=== PATIENT | female | born 1945 | race Caucasian/White ===

== ENCOUNTER 2022-09-13 09:29 | Outpatient (CLI) | payer MEDICARE, SELFPAY ==
--- NOTE | ~2022-09-13 | XR_ITS ---
EXAMINATION: XR lumbar spine min 4V DATE: 09/13/2022 10:30 INDICATION: Low back pain. TECHNIQUE: 4 views of lumbar spine standing including flexion and extension views were obtained. COMPARISON: None. FINDINGS: There is 10 degrees levoscoliosis of thoracolumbar spine. There is no abnormal motion with flexion and extension. Vertebral body heights are normal. There is mildly decreased disc height at L4 -L5 and L5-S1. There are endplate osteophytes at all levels. There is multilevel facet joint osteoart hritis, moderate to severe in lower lumbar spine. IMPRESSION: 1. Mild lumbar spondylosis. 2. Thoracolumbar levoscoliosis. Reviewed, dictated and finalized at location A.
--- NOTE | 2022-09-13 11:00 | NEURO_ITS ---
Impression: Patient reports a history of lower back pain with radiation to both legs. # Normal nerve conduction study. # Chronic neurogenic changes noted in right gastroc, fibularis longus, flexor digitorum longus and extensor digitorum brevis. This finding can be seen in the setting of right lower lumbosacral radiculopathy (L5-S2). Nerve Conduction Studies Anti Sensory Summary Table Stim Site NR Peak (ms) P-T Amp (?V) Site1 Site2 Delta-P (ms) Dist (cm) Newton (m/s) Left Sup Fibular Anti Sensory (Ant Lat Mall) 14 cm 3.7 8.4 14 cm Ant Lat Mall 3.7 16.0 43 Right Sup Fibular Anti Sensory (Ant Lat Mall) 14 cm 3.8 9.7 14 cm Ant Lat Mall 3.8 16.0 42 Left Sural Anti Sensory (Lat Mall) Calf 3.9 13.0 Calf Lat Mall 3.9 16.0 41 Right Sural Anti Sensory (Lat Mall) Calf 3.8 12.3 Calf Lat Mall 3.8 16.0 42 Motor Summary Table Stim Site NR Onset (ms) O-P Amp (mV) Site1 Site2 Delta-0 (ms) Dist (cm) Newton (m/s) Left Peroneal Motor (Vastus Med) Ankle 4.2 3.1 Popit Ankle 9.4 41.0 44 Popit 13.6 2.3 B Fib Ankle 6.6 30.0 45 B Fib 10.8 2.6 Right Peroneal Motor (Vastus Med) Ankle 3.5 4.0 Popit Ankle 9.5 42.0 44 Popit 13.0 2.9 B Fib Ankle 6.8 30.0 44 B Fib 10.3 3.2 Left Tibial Motor (Abd Guzman Brev) Ankle 4.0 6.6 Knee Ankle 8.7 40.0 46 Knee 12.7 4.8 Right Tibial Motor (Abd Guzman Brev) Ankle 3.5 12.6 Knee Ankle 9.0 40.0 44 Knee 12.5 9.0 F Wave Studies NR F-Lat (ms) L-R F-Lat (ms) Left Peroneal (Mrkrs) (EDB) 51.14 0.16 Right Peroneal (Mrkrs) (EDB) 50.98 0.16 Left Tibial (Mrkrs) Run #2 (Abd Hallucis) 51.72 0.65 Right Tibial (Mrkrs) (Abd Hallucis) 51.07 0.65 EMG Side Muscle Nerve Root Ins Act Fibs Amp Dur Recrt Comment Right AntTibialis Dp Br Fibular L4-5 Nml Nml Nml Nml Nml Right Gastroc Tibial S1-2 Nml Nml Nml Nml Reduced Right Fibularis Long Sup Br Fibular L5-S1 Nml Nml Nml Nml Reduced Right Flex Dig Long Tibial L5-S2 Nml Nml Nml Nml Reduced Right Ext Dig Brev Dp Br Fibular L5, S1 Nml Nml Nml Nml Reduced Left AntTibialis Dp Br Fibular L4-5 Nml Nml Nml Nml Nml Left Gastroc Tibial S1-2 Nml Nml Nml Nml Nml Left Fibularis Long Sup Br Fibular L5-S1 Nml Nml Nml Nml Nml Left Flex Dig Long Tibial L5-S2 Nml Nml Nml Nml Nml Left Ext Dig Brev Dp Br Fibular L5, S1 Nml Nml Nml Nml Nml MTDD
== END 2022-09-13 09:30 | disposition home or self-care (01) ==
LOC: ANHLAB 09:31 → ANHNEURO 09:32
PROVIDERS: PCP Family Medicine; Visit Provider Neurological Surgery
DX: M54.9 Dorsalgia, unspecified (principal); R20.2 Paresthesia of skin; M43.06 Spondylolysis, lumbar region; M41.85 Other forms of scoliosis, thoracolumbar region
CPT/HCPCS: 72110; 95886; 95910

== ENCOUNTER 2023-08-15 12:26 | Outpatient (CLI) | payer MEDICARE, SELFPAY ==
--- NOTE | 2023-08-15 12:33 | ECG_ITS ---
Measurements Intervals [place] Rate: 62 P: 74 SC: 178 QRS: -21 QRSD: 142 T: 83 QT: 461 QTc: 471 Interpretive Statements SINUS RHYTHM LEFT BUNDLE BRANCH BLOCK ABNORMAL ECG NO PREVIOUS ECG AVAILABLE FOR COMPARISON Electronically Signed On 08-15-2023 13:18:28 CDT by Jones Chung D.O.
[2023-08-15 13:00] LABS: Hematocrit 40.2 % (37.0-47.0); Hemoglobin 12.4 g/dL (12.0-15.0); Mean Corpuscular HGB Conc 30.8 g/dl (32-36); Mean Corpuscular Hemoglobin 27.4 pg (26-34); Mean Corpuscular Volume 88.9 fl (80-100); Platelet Count Result 321 k/mm3 (150-375); Red Blood Count 4.52 M/mm3 (4.2-5.4); Red Cell Distribution Width 13.7 % (11.5-14.5); White Blood Count 7.8 K/mm3 (4.5-10.0)
[2023-08-15 13:15] LABS: Anion Gap 5 mmol/L (8-16); Blood Urea Nitrogen 16 mg/dL (7-17); Calcium 8.9 mg/dL (8.4-10.2); Carbon Dioxide 34 mmol/L (22-30); Chloride 100 mmol/L (98-107); Estimated Glomerular Filt Rate > 60; Glucose 93 mg/dL (65-110); Potassium 3.7 mmol/L (3.4-5.0); Sodium 139 mmol/L (137-145)
[2023-08-15 13:32] LABS: Appearance Urine Clear (Clear); Bacteria Urine None Seen /hpf; Bilirubin Urine Negative (Negative); Blood Urine Negative (Negative); Color Urine Dark Yellow (Yellow); Glucose Urine UA Negative (Negative); Ketones Urine Trace mg/dL (Negative); Leukocyte Esterase Ur Trace LEU/UL (Negative); Nitrate Urine Negative (Negative); Non Pathogenic Casts 0-2; Protein Urine Negative (Negative); Specific Grav Ur 1.022 (1.001-1.035); Squamous Epithelial Cell Urine None Seen /hpf (Few); WBC Urine 0-5 /hpf (0-3); pH Urine 6.5 (5.0-9.0)
[2023-08-15 13:39] LABS: Add Urine Microscopic? YES
[2023-08-15 13:58] LABS: Prothrombin Time 13.9 Seconds (11.1-14.7)
[2023-08-15 13:59] LABS: Partial Thromboplastin Time 28.7 Seconds (22.3-36.8)
== END 2023-08-15 12:27 | disposition home or self-care (01) ==
LOC: ANHSURGERY 12:30
PROVIDERS: PCP Family Medicine; Visit Provider Neurological Surgery
DX: Z01.818 Encounter for other preprocedural examination (principal); I44.7 Left bundle-branch block, unspecified; R94.31 Abnormal electrocardiogram [ECG] [EKG]; M47.816 Spondylosis without myelopathy or radiculopathy, lumbar region; I10 Essential (primary) hypertension
CPT/HCPCS: 36415; 80048; 85027; 85610; 85730; 93005

== ENCOUNTER 2023-08-23 16:03 | Observation (INO) | payer MEDICARE, SELFPAY ==
--- NOTE | 2023-08-10 15:30 | PC.NURSE ---
Report to the Outpatient Waiting Room, entrance under the green pavilion located off [facility], at time __0900 on date __08/21/23 . Planned Procedure Time: ___1100 . Time changes happen often and if your time is changed the preop area will call you the afternoon before. - You and your visitor will be asked to self-screen and do not enter if you have any COVID symptoms. - A mask is optional within the hospital at this time. Patients may have clear liquids (water, carbonated beverages, clear teas, apple juice) until 3 hours prior to surgery( 8 AM ) with a maximum of 20 ounces. - No food from midnight until time of surgery Take the following medications with a SIP of water the morning of surgery: _AMLODIPINE,DIAZEPAM,DULOXETINE,GABAPENTIN,HYDROCODONE IF NEEDED,LEVOTHYROXINE,METOPROLOL DO NOT STOP ANY OF YOUR OTHER PRESCRIPTION MEDICATIONS PRIOR TO SURGERY ?EXCEPT THE FOLLOWING Medications to discontinue per physician __ALL VITAMINS AND SUPPLEMENTS 3 DAYS PRE OP.LAST DOSE08/17/23___ASPIRIN AND MELOXICAM PER DR ANDERSON PT STATES 7 DAYS PRE OP .PER DR ANDERSON 08/13/23 LAST DOSE Please no make-up, nail kenyan, hairspray, perfume, deodorant, or body powder the day of surgery. No jewelry (including any body piercings) or valuables the day of surgery, leave them at home. Please take a shower or bath the night before, or the morning of, surgery with an antibacterial soap. Wear comfortable, loose fitting clothing. Children are encouraged to wear pajamas. - Jewelry must be removed prior to entering the operating room. Rings and piercings that are not removed may be cut off. - The hospital will not accept responsibility for valuables. - Please leave all valuables, including medications, at home the day of surgery. If you are going home after surgery, a licensed river driver must drive you home. - NO public transportation without another adult if you receive anesthesia. - We recommend that an adult stay with you for 24 hours following discharge. - We also recommend that you do not drive, make important decision, drink alcoholic beverages, or take any drugs that were not prescribed by your health care provider for at least 24 hours after your discharge time. Follow any additional instructions given to you from your surgeon. If you or anyone in your household have experienced Covid symptoms in the past week, please notify your surgeon or the nurse liaison at the phone number below for possible testing. Telephone instructions given to _PATIENT and asked if any additional questions and then verbalized understanding. Patient advised to call surgeon office or pre surgery nurse liaison [phone] if any additional questions.
[2023-08-10 15:53] VITALS: BMI 32.1
[2023-08-21] VITALS (15 sets, daily range): BP systolic 118–163; BP diastolic 55–77; PULSE 75–92; RESP 14–20; TEMP 36.1–37; O2SAT 90–100
--- NOTE | 2023-08-21 10:36 | PM.IMHP ---
H&P: HPI History of Present Illness Date/Time: 08/21/23 10:36 Chief Complaint: Back and leg pain Narrative: Mitzy is here today for placement of a dorsal column stimulator after a successful trial. She continues to have the pain that she was having previously.? This is in her low back and bilateral lower extremities.? It occurs all the time regardless of whether she is sitting standing or walking or lying down.? She specifically denies claudicatory symptoms. She has pain in her low back that radiates posteriorly down into the bilateral lower extremities, greater on the right compared to the left. On the right, the pain extends down the lateral aspect of the leg to the ankle and on the left, the pain extends down the lateral aspect of the leg to the knee. The left lower extremity pain never goes all the way down to the ankle or below the knee and is less severe/bothersome than the right lower extremity radicular pain. The pain in her lower extremities is intermittent but has become more frequent and occurs on a daily basis at this point and is most notable for her when she is laying down which is causing her to have trouble sleeping at night. She notes diffuse/generalized weakness in the bilateral lower extremities but does not notice any specific muscle group weakness in either lower extremity or anywhere else. She has tried epidural steroid injections and medial branch blocks with a painter rough(s) in the past without permanent benefit. She is not sure if she has had a radiofrequency ablation but thinks that Dr. Kaplan may have tried this as the word ablation sounds familiar to her. She has also tried associate director career services and physical therapy within the last year but neither of these were helpful to her in any way. She does not report dermatomal numbness or any new bowel or bladder difficulty. She denies double vision or any other new constitutional problems at this time. She has undergone a dorsal column stimulator trial which was greater than 80% effective in eliminating the discomfort that she is having in her back and lower extremities.? ? She is here to discuss permanent implantation of that device as well as decompression at the L3-4 level. Review of Systems Review of Systems: Const Details: Const All systems reviewed & are unremarkable except as noted in HPI and below Denies chills, Denies fever(s), Denies frequent falls, Denies weight gain and Denies weight loss Eyes Denies change in vision, Denies diplopia and Denies loss of vision ENT Denies neck pain and Denies disequilibrium Card Denies chest pain and Denies dyspnea Resp Denies cough and Denies dyspnea GI Denies abdominal pain, Denies change in bowel habits, Denies fecal incontinence and Denies vomiting Denies hematuria, Denies urinary frequency, Denies difficulty voiding, Denies dysuria, Denies urinary incontinence, Denies urinary hesitancy and Denies urinary urgency Musc Reports as per HPI, Reports back pain, Reports muscle weakness, Denies neck pain, Reports radiating pain into limb and Reports stiffness Skin/ Breast Reports system reviewed and no additional complaints, except as documented Neuro Reports as per HPI, Denies burning sensations, Denies frequent falls, Denies focal weakness, Denies loss of vision, Reports radicular pain and Denies disequilibrium Psych Reports no additional complaints, Denies depression and Denies hopelessness Endo Reports no additional complaints and Denies polyuria Leo/ Lymph Reports no additional complaints Aller/ Immun Reports no additional complaints PMFSH Past Medical History Medical History Acute arthritis Allergies Thyroid disease Surgical History Surgical History No pertinent past surgical history Family History Family History Other Heart disease
--- NOTE | 2023-08-21 10:38 | WPDHPUPDATE1 ---
History and Physical Update Update Date/Time: 08/21/23 10:38 History and Physical has been reviewed, including an updated exam of the patient. There are NO changes in the patient's condition. Risks, benefits, and alternatives have been discussed and questions answered. Patient agrees to proceed with procedure.
--- NOTE | 2023-08-21 10:52 | WPDANESEPPF ---
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 Patient Data Age: 78 Gender: F Height: 1.63 m Weight: 84.85 kg Allergies Allergy/AdvReac Type Severity Reaction Status Date / Time codeine Allergy Mild Itching Verified 08/10/23 15:07 Home Medications Medication Instructions Recorded Confirmed Type Lactobacillus 1 cap PO DAILY 08/10/23 08/10/23 History acidophilus-Bifidobac.animalis 2.5 billion cell capsule (Daily Probiotic) alendronate 35 mg tablet 35 mg PO WEEKLY 08/10/23 08/10/23 History amlodipine 5 mg tablet 5 mg PO QAM 08/10/23 08/10/23 History aspirin 81 mg tablet,delayed 81 mg PO DAILY 08/10/23 08/10/23 History release (Adult Low Dose Aspirin) cyanocobalamin (vitamin B-12) 1,000 mcg PO DAILY 08/10/23 08/10/23 History 1,000 mcg tablet diazepam 2 mg tablet 2 mg PO BID 08/10/23 08/10/23 History docusate sodium 50 mg capsule 50 mg PO DAILY 08/10/23 08/10/23 History (Stool Softener) duloxetine 30 mg capsule,delayed 30 mg PO BID 08/10/23 08/10/23 History release fluticasone propionate 50 1 spray intranasal BID 08/10/23 08/10/23 History mcg/actuation nasal spray,suspension gabapentin 100 mg capsule 200 mg PO BID 08/10/23 08/10/23 History hydrochlorothiazide 12.5 mg tablet 12.5 mg PO DAILY 08/10/23 08/10/23 History hydrocodone 10 mg-acetaminophen 1 tablet PO BID 08/10/23 08/10/23 History 325 mg tablet levothyroxine 112 mcg tablet 112 mcg PO DAILY 08/10/23 08/10/23 History meloxicam 7.5 mg tablet 7.5 mg PO DAILY 08/10/23 08/10/23 History metoprolol succinate 25 mg 25 mg PO QAM 08/10/23 08/10/23 History tablet,extended release 24 hr montelukast 10 mg tablet 10 mg PO HS 08/10/23 08/10/23 History mitfnmex-gqw-phmu-FA-Ca carb-vit K 1 tablet PO DAILY 08/10/23 08/10/23 History 18 mg iron-400 mcg-500 mg tablet pantoprazole 40 mg tablet,delayed 40 mg PO DAILY 08/10/23 08/10/23 History release rosuvastatin 5 mg tablet 5 mg PO DAILY 08/10/23 08/10/23 History Patient hx anesthesia problems: none Family hx anesthesia problems: none Results Review: All pre-operative results and documents have been reviewed as part of the pre-operative evaluation. [facility], [facility] Past Medical History Medical History Acute arthritis Allergies Thyroid disease Surgical History Surgical History No pertinent past surgical history Family History Family History Other Heart disease Social History Social History Social History: Christiane is very confident filling out medical forms. In the last 12 months she has not received any assistance from an organization or program. Smoking packs per day: 1 Smoking cigarettes per day: 20.0 Years smoked: 40 Smoking pack-years: 40.00 Smoking status: Former smoker Tobacco type: cigarettes Smoking end date: 06/04/06 Alcohol intake: current Alcohol use details: 2 DRINKS PER MONTH Substance use: never Substance use type: does not use Lack of Transportation: No Lack of Food: Never True Current Housing: I Have Housing Concerned About Future Housing: No Difficulty Paying Gas/Electric Bills: No Difficulty Paying for Meds: No Currently Unemployed: No Education: High School Diploma/GED Difficulty w/ Childcare or Family Care: No Living arrangements: alone Spiritual care concerns: No Anes - Eval Final PreProcedure Day of Procedure 08/21/23 10:52 Patient weight: obese Heart: regular rate and rhythm Lungs: cl
[2023-08-21] MEDS: LACTATED RINGERS 1,000 ML 30 ML IV CONT ×2 (10:59→13:15)
[2023-08-21] MEDS: ceFAZolin 2 GM/D5W 50 ML 2 GM/50 ML BAG IVPB (11:02)
[2023-08-21] MEDS: LIDO 1%/EPINEPHRINE 1:100,000 20 ML VIAL INFILTRATE (11:47)
[2023-08-21] MEDS: VANCOMYCIN HCL 1,000 MG VIAL 500 MG TOPICAL (12:10)
--- NOTE | 2023-08-21 13:34 | W.PM.PROC2 ---
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 She was then turned into the prone position on a Edenilson frame. There of operation back was examined, marked for incision, prepped and draped in routine sterile fashion. Incision was marked over the L3 and L4 spinous processes in the midline, transversely in the left flank, and longitudinally in the thoracic spine based on the T10 pedicles. These areas were injected with 0.5% lidocaine with [id number] epinephrine. Intravenous antibiotics given prior to incision. Incisions were made in all locations using a 10 blade scalpel. At L3-4 subperiosteal dissection the muscle soft tissue away from spinous process and lamina on the left was performed with a subperiosteal elevator and Bovie cautery. A verifying x-rays obtained to verify the level of operation. Midas Ata drill was used to perform a hemilaminectomy medial facetectomy. Under microscopy the yellow ligament was lifted removed piecemeal using Kerrison punches. Lateral recess was cleared by did dissecting the plane with the dura and removing overgrown bone and ligament with Kerrison punches. This was done also contralaterally. These maneuvers were performed to attempt was made could be placed in the lateral epidural space to confirm lack of compression. Bleeding was stopped with bipolar Bovie cautery and Gelfoam thrombin powder. At the thoracic incision a subperiosteal dissection of the muscle soft tissue away from spinous process and lamina was performed with a subperiosteal elevator and Bovie cautery. A verifying x-rays obtained to verify the level of operation.Kerrison punches, curved curettes and Leksell rongeur were used to perform a laminectomy at T9-10 and T8-9 until a short wide area the dura was uncovered in both locations. A lead trial and a curved malleable retractor were used to cannulate the epidural space. The lead was then placed into the epidural space and to was confirmed the behind the T7 and T8 vertebral bodies in the midline. An anchor was attached 1 wires which was at the superior spinous process using a 3-0 Prolene suture. Tension relief loops were placed in both the wires which then buried to the flank incision where a pocket had been created using curved Rich scissors and toothed forceps 1 cm deep in the tissue and bleeding have been stopped with bipolar cautery. The wires were then placed into the generator site and secured the using the small screwdriver for that purpose. Impedance testing was carried out confirmed connectivity which was confirmed. The wounds were then all copiously irrigated with bacitracin irrigation all bleeding was stopped bipolar and Bovie cautery and Gelfoam thrombin powder. The wounds were then closed in layered fashion with 2-0 Vicryl interrupted sutures in the thoracic and lumbodorsal fascia and Janna's layer. 3-0 Vicryl buried interrupted sutures were placed in the dermis in all incisions were closed with a running 4-0 Monocryl subcuticular stitch and dressed with Dermabond. The patient was allowed to wake up in the operating room and was taken to the recovery room in stable condition. There were no immediate complications of this operation. All counts were reported correct at the end the case. Blood loss was 25 cc. The patient was neurologically at her baseline postoperatively. Implants Rios dorsal column stimulator lead and generator Estimated Blood Loss 25 IV Fluids 1,000 Complications None Condition Stable Disposition PACU [facility] Billing Surgery - Charge Forward: Surgery
--- NOTE | 2023-08-21 15:35 | ADMGEN ---
This patient, Christiane Hines, was admitted to Medical Room 252-. Patient/family oriented to hospital policies and general routines including ID bracelet, bed and alarms, visiting hours, pain management, procedures, bathroom and other care routines, personal items, smoking policy, room service/diet, and visiting hours. Information on how to activate the Rapid Response Team has been discussed. Patient/Family are encouraged to report perceived risks to care and to ask questions if they do not understand what they are told or what they should do.
[2023-08-21] MEDS: KCL 20 MEQ/D5/0.45% SOD CHL 1,000 ML 100 ML IV CONT (15:51)
[2023-08-21] MEDS: GABAPENTIN 100 MG CAPSULE 200 MG PO (17:33)
[2023-08-21] MEDS: diazePAM (*CRX) 2 MG TABLET PO (17:33)
[2023-08-21] MEDS: HYDROcodone/acetaminophen (*CRX) 10-325 MG TABLET 1 TAB PO (18:09)
[2023-08-21] MEDS: MONTELUKAST SODIUM 10 MG TABLET PO (20:23)
[2023-08-21] MEDS: HYDROcodone/acetaminophen (*CRX) 5-325 MG TABLET 1 TAB PO (20:23)
[2023-08-21] MEDS: FLUTICASONE PROPIONATE 0.05% NA SPR 16 GM BTL (*BKC) 1 SPRAY NASAL (20:23)
[2023-08-21] MEDS: DULoxetine HCL 30 MG CAPSULE.DR PO (20:23)
[2023-08-22] VITALS (8 sets, daily range): BP systolic 145–167; BP diastolic 63–80; PULSE 76–100; RESP 18–20; TEMP 36.6–38.4; O2SAT 94–98
[2023-08-22] MEDS: HYDROcodone/acetaminophen (*CRX) 10-325 MG TABLET 1 TAB PO ×2 (04:30→12:08)
[2023-08-22] MEDS: LEVOTHYROXINE SODIUM 112 MCG TABLET PO (05:18)
--- NOTE | 2023-08-22 07:28 | WPDANESPN ---
Anes - Prog Note Post-Op Date/Time: 08/22/23 07:28 Cardiovascular status: normal Respiratory status: normal Airway patency: baseline Mental status: baseline Post-Op hydration status: normal Vital Signs: Last Vital Signs Temp 36.7 C 08/22/23 04:18 Pulse 100 08/22/23 04:18 Resp 20 08/22/23 04:18 BP 163/74 H 08/22/23 04:18 Pulse Ox 97 08/22/23 04:18 O2 Del Method Room Air 08/21/23 20:20 O2 Flow Rate 6 08/21/23 14:00 Pain Score (VAS): 2 I/O: Intake & Output 08/21/23 08/21/23 08/22/23 15:59 23:59 07:59 Intake Total 1300 483.3 390 Output Total 600 600 Balance 700 483.3 -210 Post-procedural complaints: none Patient Feedback: Patient satisfied with anesthetic care.
[2023-08-22] MEDS: PANTOPRAZOLE 40 MG TABLET PO (08:32)
[2023-08-22] MEDS: CYANOCOBALAMIN 1,000 MCG TABLET 1000 MCG PO (08:32)
[2023-08-22] MEDS: diazePAM (*CRX) 2 MG TABLET PO ×2 (08:33→16:48)
[2023-08-22] MEDS: ROSUVASTATIN 5 MG TABLET PO (08:33)
[2023-08-22] MEDS: amLODIPine BESYLATE 5 MG TABLET PO (08:33)
[2023-08-22] MEDS: DULoxetine HCL 30 MG CAPSULE.DR PO ×2 (08:33→20:34)
[2023-08-22] MEDS: hydroCHLOROthiazide 12.5 MG CAPSULE PO (08:33)
[2023-08-22] MEDS: METOPROLOL SUCCINATE EXT REL 25 MG TABCR PO (08:33)
[2023-08-22] MEDS: THERAPEUTIC MULTIVITAMINS/MINERALS TAB (*BKC) 1 TABLET PO (08:33)
[2023-08-22] MEDS: FLUTICASONE PROPIONATE 0.05% NA SPR 16 GM BTL (*BKC) 1 SPRAY NASAL ×2 (08:34→20:34)
[2023-08-22] MEDS: DOCUSATE SODIUM LIQ 100 MG/10 ML UDC 50 MG PO (08:34)
[2023-08-22] MEDS: GABAPENTIN 100 MG CAPSULE 200 MG PO ×2 (08:34→16:48)
--- NOTE | 2023-08-22 17:03 | WPDNEUROSGPN ---
Progress Note: A&P Assessment and Plan (1) Status post lumbar spine operation: Code(s): Z98.890 - Other specified postprocedural states Status: Acute Plan POD#1 s/p left L3-4 hemilaminectomy and insertion of the DCS Patient is neurologically intact on exam. She reports not having good pain control mainly with back incisional discomfort. Will continue Valium 2 mg b.i.d. and change [place] to oxycodone. Patient states she does not feel comfortable going home with the recent medication changes therefore we will monitor her overnight and plan for discharge tomorrow pending her progress with pain control. Continue mobilizing, PT/OT. Time Spent With Patient Time with patient: 15 - 25 minutes Subjective Date/time seen: 08/22/23 17:03 Interval history: Patient reports having breakthrough pain around all incisions after receiving hydrocodone 10 mg strength. She also reports some ongoing left lateral leg pain as similar to preop and not worse. She denies any new neurologic symptoms since surgery. Exam Narrative: GENERAL: The patient appears well-nourished, well-developed, and in no acute distress SKIN: incisions are clean / dry / intact NEUROLOGIC EXAMINATION: Mental status: Patient is awake, alert, and oriented to person place and time. Speech is clear and fluent. Motor: Strength is 5/5 in bilateral lower extremities Sensory: Sensation is intact to light touch throughout bilateral lower extremities. Objective Data Vital Signs Vital Signs: Vital Signs - 24 hr 08/21/23 17:09 08/21/23 18:09 08/21/23 19:27 Temperature 98.1 F 98.6 F 96.9 F L Pulse Rate 91 85 92 Respiratory Rate 18 18 20 Blood Pressure 136/63 163/77 H 153/71 H Pulse Oximetry 96 95 93 Oxygen Delivery 08/21/23 20:20 08/22/23 00:30 08/22/23 04:18 Temperature 98.5 F 98.0 F Pulse Rate 99 100 Respiratory Rate 20 20 Blood Pressure 167/80 H 163/74 H Pulse Oximetry 94 97 Oxygen Delivery Room Air 08/22/23 07:47 08/22/23 08:30 08/22/23 08:33 Temperature Pulse Rate 95 95 Respiratory Rate Blood Pressure 152/63 H Pulse Oximetry 96 Oxygen Delivery Room Air 08/22/23 10:00 08/22/23 08:30 08/22/23 14:14 Temperature 98.0 F 97.9 F Pulse Rate 86 79 Respiratory Rate 18 18 Blood Pressure 145/63 H 159/68 H Pulse Oximetry 98 97 Oxygen Delivery Room Air Intake/Output Intake/Output: Intake & Output 08/19/23 08/20/23 08/21/23 08/22/23 23:59 23:59 23:59 23:59 Intake Total 1783.3 1410 Output Total 600 1350 Balance 1183.3 60 Meds/Results Medications: Active Medications Generic Name Dose Route Start Last Admin Trade Name Freq PRN Reason Stop Dose Admin Al Hydrox/Mg Hydrox/Simethicone 20 ml 08/21/23 14:57 Mag Hydrox/Al Hydrox/Simeth 30 Ml Udc PO Q4H PRN Indigestion/Heartburn Alendronate Sodium 35 mg 08/26/23 09:00 Alendronate Sodium 35 Mg Tablet PO WEEKLY RENAE Amlodipine Besylate 5 mg 08/22/23 09:00 08/22/23 08:33 Amlodipine Besylate 5 Mg Tablet PO 5 mg QAM RENAE Administration Bisacodyl 10 mg 08/21/23 14:57 Bisacodyl 10 Mg Suppository RECTAL DAILY PRN Constipation Cyanocobalamin 1,000 mcg 08/22/23 09:00 08/22/23 08:32 Cyanocobalamin 1,000 Mcg Tablet PO 1,000 mcg DAILY RENAE Administration Cyclobenzaprine HCl 10 mg 08/21/23 14:57 Cyclobenzaprine Hcl 10 Mg Tablet PO TID PRN Muscle Spasms Diazepam 2 mg 08/21/23 17:00 08/22/23 16:48 Diazepam (*Crx) 2 Mg Tablet PO 2 mg BID RENAE Administration Docusate Sodium 50 mg 08/22/23 09:00 08/22/23 08:34 Docusate Sodium Liq 100 Mg/10 Ml Udc PO 50 mg DAILY RENAE Administration Duloxetine HCl 30 mg 08/21/23 21:00 08/22/23 08:33 Duloxetine Hcl 30 Mg Capsule.Dr PO 30 mg Q12HR RENAE Administration Fluticasone Propionate 1 spray 08/21/23 21:00 08/22/23 08:34 Fluticasone Propionate 0.05% Na Spr 16 Gm Btl (*Bkc) WHIT
[2023-08-22] MEDS: CYCLOBENZAPRINE HCL 10 MG TABLET PO (18:26)
[2023-08-22] MEDS: oxyCODONE HCL (*CRX) 5 MG TAB IR PO (18:29)
[2023-08-22] MEDS: MONTELUKAST SODIUM 10 MG TABLET PO (20:34)
[2023-08-22] MEDS: CALCIUM CARBONATE (TUMS) 500 MG (200 MG ELEMENTAL) PO (21:39)
--- NOTE | ~2023-08-23 | XR_ITS ---
EXAMINATION: XR fluoroscopy no charge DATE: 08/21/2023 11:00 CDT INDICATION: STIMULATOR PLACEMENT . TECHNIQUE: 3 fluoroscopic images of the lumbar spine were obtained during stimulator placement, perfo rmed by Giuliano Aguirre MD. I was not present during the procedure. Fluoroscopy exposure time was 6.5 seconds. Air Kerma 15.653 mGy. DAP 0.3103 mGym2. COMPARISON: None FINDINGS/IMPRESSION: Fluoroscopic documentation of stimulator placement. Please refer to the operative note for complete p rocedural details. Reviewed, dictated and finalized at location K.
[2023-08-23] MEDS: LEVOTHYROXINE SODIUM 112 MCG TABLET PO (05:38)
[2023-08-23 06:45] VITALS: BP 154/69; PULSE 89; RESP 18; TEMP 37.7; O2SAT 93
[2023-08-23 09:08] VITALS: BP 140/66; PULSE 92; RESP 16; O2SAT 92
[2023-08-23] MEDS: GABAPENTIN 100 MG CAPSULE 200 MG PO ×2 (09:08→18:03)
[2023-08-23] MEDS: ROSUVASTATIN 5 MG TABLET PO (09:08)
[2023-08-23 09:09] VITALS: PULSE 92
[2023-08-23] MEDS: DULoxetine HCL 30 MG CAPSULE.DR PO ×2 (09:09→20:23)
[2023-08-23] MEDS: METOPROLOL SUCCINATE EXT REL 25 MG TABCR PO (09:09)
[2023-08-23] MEDS: hydroCHLOROthiazide 12.5 MG CAPSULE PO (09:09)
[2023-08-23] MEDS: DOCUSATE SODIUM LIQ 100 MG/10 ML UDC 50 MG PO (09:09)
[2023-08-23] MEDS: amLODIPine BESYLATE 5 MG TABLET PO (09:09)
[2023-08-23] MEDS: CYANOCOBALAMIN 1,000 MCG TABLET 1000 MCG PO (09:09)
[2023-08-23] MEDS: THERAPEUTIC MULTIVITAMINS/MINERALS TAB (*BKC) 1 TABLET PO (09:09)
[2023-08-23] MEDS: diazePAM (*CRX) 2 MG TABLET PO ×2 (09:09→18:03)
[2023-08-23] MEDS: PANTOPRAZOLE 40 MG TABLET PO (09:09)
[2023-08-23] MEDS: FLUTICASONE PROPIONATE 0.05% NA SPR 16 GM BTL (*BKC) 1 SPRAY NASAL ×2 (09:10→20:24)
[2023-08-23] MEDS: oxyCODONE/ACETAMINOPHEN (*CRX) 10-325 MG TABLET 1 TAB PO ×2 (09:13→13:17)
[2023-08-23] MEDS: CYCLOBENZAPRINE HCL 10 MG TABLET PO (13:17)
[2023-08-23] MEDS: ACETAMINOPHEN 500 MG TABLET 1000 MG PO ×2 (14:49→18:03)
[2023-08-23 14:50] VITALS: BP 119/56; BP 133/64; PULSE 71; RESP 16; O2SAT 96
[2023-08-23 15:07] VITALS: BP 149/57; PULSE 80; RESP 18; TEMP 36.6; O2SAT 92
--- NOTE | 2023-08-23 16:48 | WPDNEUROSGPN ---
Progress Note: A&P Assessment and Plan (1) Status post lumbar spine operation: Code(s): Z98.890 - Other specified postprocedural states Status: Acute (2) Status post insertion of spinal cord stimulator: Code(s): Z96.89 - Presence of other specified functional implants Status: Acute Plan -I discussed with the patient and her that we expect her pain to be similar to worse than prior to surgery because her stimulator has not been fully programmed yet. -I will change her pain medication so that she can receive 1000mg Tylenol every 6 hours scheduled and receive oxycodone in addition to that -We will have physical therapy re-assess her ability to mobilize on the stairs this afternoon -Her nurse updated me that she was having dizziness when being up and moving around but did not have any orthostatic hypotension. We may need to hold off on narcotics temporarily to see if this improves -Anticipate discharge later today vs tomorrow pending progress with therapy Subjective Date/time seen: 08/23/23 16:48 Interval history: States her back pain is similar to what she had before surgery but worse due to incisional pain. Medication is not very helpful. Denies any new pain or paresthesias in the legs. Tolerating PO and voiding independently. Passing gas but has not had BM. Ambulated with therapy but was not able to do steps. Review of Systems Review of Systems: All systems reviewed & are unremarkable except as noted in HPI and below Exam Narrative: Incisions c/d/i full strength in lower extremities Sensation intact to light touch AOx4 Objective Data Vital Signs Vital Signs: Vital Signs - 24 hr 08/22/23 18:46 08/22/23 20:55 08/22/23 23:42 Temperature 99.0 F 101.2 F H Pulse Rate 76 84 Respiratory Rate 18 18 Blood Pressure 158/66 H 154/68 H Pulse Oximetry 96 95 Oxygen Delivery Room Air 08/23/23 06:45 08/23/23 09:08 08/23/23 09:09 Temperature 100 F H Pulse Rate 89 92 92 Respiratory Rate 18 16 Blood Pressure 154/69 H 140/66 Pulse Oximetry 93 92 Oxygen Delivery 08/23/23 09:10 08/23/23 14:50 08/23/23 14:50 Temperature Pulse Rate 71 Respiratory Rate 16 Blood Pressure 133/64 119/56 L Pulse Oximetry 96 Oxygen Delivery Room Air 08/23/23 15:07 Temperature 97.9 F Pulse Rate 80 Respiratory Rate 18 Blood Pressure 149/57 H Pulse Oximetry 92 Oxygen Delivery Intake/Output Intake/Output: Intake & Output 08/20/23 08/21/23 08/22/23 08/23/23 23:59 23:59 23:59 23:59 Intake Total 1783.3 2150 480 Output Total 600 1350 800 Balance 1183.3 800 -320 Meds/Results Medications: Active Medications Generic Name Dose Route Start Last Admin Trade Name Freq PRN Reason Stop Dose Admin Acetaminophen 1,000 mg 08/23/23 13:25 08/23/23 14:49 Acetaminophen 500 Mg Tablet PO 1,000 mg Q6HR RENAE Administration Al Hydrox/Mg Hydrox/Simethicone 20 ml 08/21/23 14:57 Mag Hydrox/Al Hydrox/Simeth 30 Ml Udc PO Q4H PRN Indigestion/Heartburn Alendronate Sodium 35 mg 08/26/23 09:00 Alendronate Sodium 35 Mg Tablet PO WEEKLY [facility] Amlodipine Besylate 5 mg 08/22/23 09:00 08/23/23 09:09 Amlodipine Besylate 5 Mg Tablet PO 5 mg QAM RENAE Administration Bisacodyl 10 mg 08/21/23 14:57 Bisacodyl 10 Mg Suppository RECTAL DAILY PRN Constipation Calcium Carbonate 200 mg 08/22/23 20:52 08/22/23 21:39 Calcium Carbonate (Tums) 500 Mg (200 Mg Elemental) PO 200 mg Q6H PRN Administration Indigestion Cyanocobalamin 1,000 mcg 08/22/23 09:00 08/23/23 09:09 Cyanocobalamin 1,000 Mcg Tablet PO 1,000 mcg DAILY RENAE Administration Cyclobenzaprine HCl 10 mg 08/21/23 14:57 08/23/23 13:17 Cyclobenzaprine Hcl 10 Mg Tablet PO 10 mg TID PRN Administration Muscle Spasms Diazepam 2 mg 08/21/23 17:00 08/23/23 09:09 Diazepam (*Crx) 2 Mg Tablet PO 2 mg BID RENAE Administration Docusate So
[2023-08-23] MEDS: ENOXAPARIN 40 MG/0.4 ML SYRINGE SUB-Q (20:23)
[2023-08-23] MEDS: MONTELUKAST SODIUM 10 MG TABLET PO (20:24)
[2023-08-24] MEDS: ACETAMINOPHEN 500 MG TABLET 1000 MG PO ×3 (01:07→11:53)
[2023-08-24 05:45] VITALS: BP 136/59; PULSE 74; RESP 17; TEMP 36.7; O2SAT 90
[2023-08-24] MEDS: LEVOTHYROXINE SODIUM 112 MCG TABLET PO (06:35)
[2023-08-24] MEDS: DULoxetine HCL 30 MG CAPSULE.DR PO (09:02)
[2023-08-24] MEDS: THERAPEUTIC MULTIVITAMINS/MINERALS TAB (*BKC) 1 TABLET PO (09:02)
[2023-08-24] MEDS: ROSUVASTATIN 5 MG TABLET PO (09:02)
[2023-08-24] MEDS: PANTOPRAZOLE 40 MG TABLET PO (09:02)
[2023-08-24] MEDS: CYANOCOBALAMIN 1,000 MCG TABLET 1000 MCG PO (09:02)
[2023-08-24] MEDS: amLODIPine BESYLATE 5 MG TABLET PO (09:02)
[2023-08-24] MEDS: DOCUSATE SODIUM LIQ 100 MG/10 ML UDC 50 MG PO (09:02)
[2023-08-24] MEDS: diazePAM (*CRX) 2 MG TABLET PO (09:02)
[2023-08-24] MEDS: hydroCHLOROthiazide 12.5 MG CAPSULE PO (09:02)
[2023-08-24] MEDS: GABAPENTIN 100 MG CAPSULE 200 MG PO (09:02)
[2023-08-24 09:03] VITALS: PULSE 75
[2023-08-24] MEDS: METOPROLOL SUCCINATE EXT REL 25 MG TABCR PO (09:03)
[2023-08-24] MEDS: FLUTICASONE PROPIONATE 0.05% NA SPR 16 GM BTL (*BKC) 1 SPRAY NASAL (09:03)
[2023-08-24 09:10] VITALS: O2SAT 91
[2023-08-24] MEDS: oxyCODONE HCL (*CRX) 5 MG TAB IR PO (09:10)
--- NOTE | 2023-08-24 10:27 | WPDNEUROSGPN ---
Progress Note: A&P Assessment and Plan (1) Status post insertion of spinal cord stimulator: Code(s): Z96.89 - Presence of other specified functional implants Status: Acute (2) Status post lumbar spine operation: Code(s): Z98.890 - Other specified postprocedural states Status: Acute Assessment and Plan: POD#3 s/p left L3-4 hemilaminectomy and insertion of the DCS Patient reports her pain control has improved and more tolerable. She would like to work with therapy 1 more time before discharge this afternoon. We discussed postoperative dc instructions who and recovery expectations Dispo: discharge home this afternoon after being seen by PT/OT Subjective Date/time seen: 08/24/23 10:27 Interval history: Reports feeling better this morning . She denies any new complaints and states her pain is more tolerable. Exam Narrative: GENERAL: The patient is sitting in recliner SKIN: incisions are clean / dry / intact, skin glue present and intact NEUROLOGIC EXAMINATION: Mental status: Patient is awake, alert, and oriented to person place and time. Speech is clear and fluent. Motor: Strength is 5/5 in bilateral lower extremities Objective Data Vital Signs Vital Signs: Vital Signs - 24 hr 08/23/23 14:50 08/23/23 14:50 08/23/23 15:07 Temperature 97.9 F Pulse Rate 71 80 Respiratory Rate 16 18 Blood Pressure 133/64 119/56 L 149/57 H Pulse Oximetry 96 92 Oxygen Delivery 08/23/23 20:00 08/24/23 05:45 08/24/23 09:03 Temperature 98.1 F Pulse Rate 74 75 Respiratory Rate 17 Blood Pressure 136/59 L Pulse Oximetry 90 Oxygen Delivery Room Air 08/24/23 09:10 Temperature Pulse Rate Respiratory Rate Blood Pressure Pulse Oximetry 91 Oxygen Delivery Room Air Intake/Output Intake/Output: Intake & Output 08/21/23 08/22/23 08/23/23 08/24/23 23:59 23:59 23:59 23:59 Intake Total 1783.3 2150 720 700 Output Total 600 1350 800 Balance 1183.3 800 -80 700 Meds/Results Medications: Active Medications Generic Name Dose Route Start Last Admin Trade Name Freq PRN Reason Stop Dose Admin Acetaminophen 1,000 mg 08/23/23 13:25 08/24/23 06:34 Acetaminophen 500 Mg Tablet PO 1,000 mg Q6HR RENAE Administration Al Hydrox/Mg Hydrox/Simethicone 20 ml 08/21/23 14:57 Mag Hydrox/Al Hydrox/Simeth 30 Ml Udc PO Q4H PRN Indigestion/Heartburn Alendronate Sodium 35 mg 08/26/23 09:00 Alendronate Sodium 35 Mg Tablet PO WEEKLY RENAE Amlodipine Besylate 5 mg 08/22/23 09:00 08/24/23 09:02 Amlodipine Besylate 5 Mg Tablet PO 5 mg QAM RENAE Administration Bisacodyl 10 mg 08/21/23 14:57 Bisacodyl 10 Mg Suppository RECTAL DAILY PRN Constipation Calcium Carbonate 200 mg 08/22/23 20:52 08/22/23 21:39 Calcium Carbonate (Tums) 500 Mg (200 Mg Elemental) PO 200 mg Q6H PRN Administration Indigestion Cyanocobalamin 1,000 mcg 08/22/23 09:00 08/24/23 09:02 Cyanocobalamin 1,000 Mcg Tablet PO 1,000 mcg DAILY RENAE Administration Cyclobenzaprine HCl 10 mg 08/21/23 14:57 08/23/23 13:17 Cyclobenzaprine Hcl 10 Mg Tablet PO 10 mg TID PRN Administration Muscle Spasms Diazepam 2 mg 08/21/23 17:00 08/24/23 09:02 Diazepam (*Crx) 2 Mg Tablet PO 2 mg BID RENAE Administration Docusate Sodium 50 mg 08/22/23 09:00 08/24/23 09:02 Docusate Sodium Liq 100 Mg/10 Ml Udc PO 50 mg DAILY RENAE Administration Duloxetine HCl 30 mg 08/21/23 21:00 08/24/23 09:02 Duloxetine Hcl 30 Mg Capsule.Dr PO 30 mg Q12HR RENAE Administration Enoxaparin Sodium 40 mg 08/23/23 21:00 08/23/23 20:23 Enoxaparin 40 Mg/0.4 Ml Syringe SUB-Q 40 mg QHS RENAE Administration Fluticasone Propionate 1 spray 08/21/23 21:00 08/24/23 09:03 Fluticasone Propionate 0.05% Na Spr 16 Gm Btl (*Bkc) NASAL 1 spray Q12HR RENAE Administration Gabapentin 200 mg 08/21/23 17
--- NOTE | 2023-09-21 08:56 | PM.DS ---
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 The procedure went well without any complications and she recovered and was sent to the floor for her recovery and admission. While admitted she worked with Physical and Occupational therapy. She slowly progressed in regards to pain control and ambulation. she was eventually discharged on postoperative day 3. During this hospitalization she did not require any type of blood transfusion. She was voiding well, eating well, mobilizing well and therefore she discharged home with family support. Status at Discharge Overall status at discharge: patient is progressing back to baseline Time Spent with Patient Time attestation: Total time spent providing and/or coordinating discharge services: Time spent: Less than 30 minutes Exam Narrative: GENERAL:? ? The patient is sitting in recliner SKIN: ? ? incisions are clean / dry / intact,? skin glue present and intact ? NEUROLOGIC EXAMINATION: Mental status:? ? Patient is awake, alert, and oriented to person place and time.? Speech is clear and fluent. Motor:? ? Strength is 5/5 in bilateral lower extremities Discharge Plan Discharge Attending physician on discharge: Giuliano Aguirre Consulting providers: Kane Toussaint; Danny Mckeon; Darell Singleton; Stephany Jacome; Baylee Sood Discharging Clinician: Stephany Jacome Patient Disposition: Home, Self-Care Activity: may shower Diet: as tolerated Wound Care Instructions: follow printed instructions Discharge Instructions: INSTRUCTIONS AFTER YOUR SPINAL CORD STIMULATOR and lumbar decompression surgery ? Your incisions are closed with skin glue. This will typically peel off on its own in 10-14 days. ? You may shower and get your incision wet with soap and water starting on post-operative day 2. Do not submerge the incision under water (like in a bathtub or swimming pool) for 6 weeks after surgery. Never apply ointments or lotions to the incision. ? The incision should be checked daily. Notify the office if there is drainage, redness, or if you have fever with a temperature of over 101 degrees. ? Your stimulator has been programmed to a low setting. This will be adjusted at your first post-op appointment.. Please call the stimulator rep with any questions about the settings. ? You are encouraged to walk as much as comfortable, with assistance as needed. For example, it may be beneficial to walk short distances hourly during the waking hours and gradually increase walking during your recovery period. Fatigue can be common. ? Avoid any bending, heavy lifting, or twisting movements. ? You have an [id number]-pound lift restriction until further advised by your physician (A gallon of milk weighs eight pounds). ? Make frequent position changes, avoiding long periods of sitting. Try not to sit more than 60 minutes at a time. ? No housework, especially vacuuming, making beds, or doing laundry until seen in the office. ? You may walk stairs carefully. ? The physician may order pain medication and/or muscle relaxers. As time goes by, you should require less of these. Always take your medication as ordered, and only if needed. If you take more than prescribed, it will not be refilled early. If you feel you require narcotic medication refill, kindly give the office a 72-hour notice. No refills are given over the weekend. ? Try using Tylenol 1000mg as the first-line medication for pain. You may take this every 6 hours. If your pain is not controlled with Tylenol first, you may use narcotic pain medication. ? Resume your usual diet. Constipation is a com
== END 2023-08-24 13:53 | disposition home or self-care (01) ==
LOC: ANHSURGERY 16:15 → ANH2MED 16:15
PROVIDERS: Admitting Provider Neurological Surgery; PCP Family Medicine; Visit Provider Neurological Surgery
PROC: (CPT 63030; principal; 2023-08-21 11:00)
PROC: (CPT 63005; 2023-08-21 11:00)
DX: M47.816 Spondylosis without myelopathy or radiculopathy, lumbar region (principal); M48.061 Spinal stenosis, lumbar region without neurogenic claudication; E07.9 Disorder of thyroid, unspecified; M19.90 Unspecified osteoarthritis, unspecified site; Z87.891 Personal history of nicotine dependence; F10.90 Alcohol use, unspecified, uncomplicated; Z79.82 Long term (current) use of aspirin; Z79.891 Long term (current) use of opiate analgesic; Z79.899 Other long term (current) drug therapy
CPT/HCPCS: 63030; 63655; 63685; 97116; 97161; 97165; 97530; 97535; 99199; A9270; C1713; G0378; J0690; J1100; J1650; J2405; J2704; J3010; J3370; J3480; J7120